=== PATIENT | male | born 1995 | race Caucasian/White ===

== ENCOUNTER 2025-01-22 22:01 | Emergency (ER) | payer MEDICAID ==
[~2025-01-22] VITALS: Ht 177.8 cm; Wt 72.1 kg
[2025-01-22] MEDS: TDAP [DIPH/PERTUSSIS/TET] 0.5 ML VIAL IM ONE (00:30)
[2025-01-22] MEDS ORDERED: MORPHINE SULFATE INJ 2 MG/ML DISP.SYRIN ONE (23:29)
[2025-01-22] MEDS ORDERED: PIPERACI/TAZO 3.375GM/D5W 50ML PB IV ONE (23:31)
[2025-01-22] MEDS ORDERED: VANCOMYCIN 1 GM /D5W 250 ML PB IV ONE (23:31)
[2025-01-22 23:38] LABS: PLATELET COUNT (AUTO) 285 K/uL (150-450); RED BLOOD CELL COUNT(AUTO) 4.51 MIL/uL (4.5-6.0); RED CELL DISTRIBUTION WIDTH 13.7 % (11.5-15.0); WHITE BLOOD COUNT (AUTO) 11.7 K/uL (4.3-11.0)
[2025-01-22] MEDS: PIPERACILLIN /TAZOBACTAM 3.375 G in IV D5W 50 ML IV ONE (23:40)
[2025-01-22] MEDS: MORPHINE SULFATE INJ 2 MG/ML DISP.SYRIN IV ONE (23:40)
[2025-01-22 23:46] LABS: ERYTHROCYTE SEDIMENTATION RATE 36 MM/HR (0-15)
[2025-01-22 23:55] LABS: CALCIUM, SERUM 8.8 mg/dL (8.5-10.1); CREATININE 0.7 mg/dL (0.6-1.3); SODIUM SERUM 135.0 mmol/L (136-145); UREA NITROGEN, BLOOD 14.0 mg/dL (7-18)
[2025-01-23 00:01] LABS: ASPARTATE AMINOTRANSFERASE 10.0 U/L (15-37); TOTAL PROTEIN, SERUM 7.8 g/dL (6.4-8.2)
[2025-01-23] MEDS: VANCOMYCIN 1 GM in IV D5W 250 ML IV ONE (00:13)
[2025-01-23] MEDS ORDERED: CEPH-570 PO (01:06)
[2025-01-23] MEDS ORDERED: SULF1TAB48 PO (01:06)
[2025-01-23 01:27] VITALS: BP 115/61; TEMP 98; O2SAT 98
== END 2025-01-23 01:28 | disposition left against medical advice (07) ==
LOC: ER 22:08
DX: S60.423A Blister (nonthermal) of left middle finger, initial encounter (principal); L03.012 Cellulitis of left finger; M65.949 Unspecified synovitis and tenosynovitis, unspecified hand; Z60.2 Problems related to living alone; W57.XXXA Bitten or stung by nonvenomous insect and other nonvenomous arthropods, initial encounter; Y93.89 Activity, other specified; Y92.89 Other specified places as the place of occurrence of the external cause; Y99.8 Other external cause status
CPT/HCPCS: 99284; 96365; 96375; 73130; 85025; 87040; 85652; 36415; 80053; 86140; 96367; J2543; J7060; J2270; J3373